=== PATIENT | female | born 1990 | race Caucasian/White ===

== ENCOUNTER 2019-10-31 14:20 | Inpatient (IN) | payer OTHER ==
[~2019-10-31] VITALS: Ht 165.1 cm; Wt 78.0 kg
[2019-10-31] MEDS ORDERED: D5%-LACTATED RINGERS 1,000 ML IV SCH (15:26)
[2019-10-31] MEDS ORDERED: OXYTOCIN 30U/ 0.9% NaCL 500ML 500 ML IV ONE (15:26)
[2019-10-31] MEDS ORDERED: METOCLOPRAMIDE 5 MG/ML, 2ML IVPush PRN (15:30)
[2019-10-31] MEDS ORDERED: TERBUTALINE 1 MG/ML, 1ML IVPush PRN (15:30)
[2019-10-31] MEDS ORDERED: NEWBORN KIT ONE (15:30)
[2019-10-31] MEDS ORDERED: FENTANYL PF 100 MCG/2ML IV PRN (15:30)
[2019-10-31] MEDS ORDERED: OXYTOCIN 30U/ 0.9% NaCL 500ML 500 ML ONE (15:30)
[2019-10-31] MEDS ORDERED: FENTANYL PF 100 MCG/2ML IVPush PRN (15:30)
[2019-10-31] MEDS ORDERED: ONDANSETRON 2MG/ML, 2ML IVPush PRN ×2 (15:30→23:00)
[2019-10-31] MEDS ORDERED: TERBUTALINE 1 MG/ML, 1ML SQ PRN (15:30)
[2019-10-31] MEDS ORDERED: CALCIUM CARBONATE 500 MG TAB.CHEW PO PRN (15:30)
[2019-10-31] MEDS ORDERED: PENICILLIN GK 5,000,000 UNITS in DEXTROSE 5% 100 ML IVPB ONE (15:30)
[2019-10-31] MEDS ORDERED: BETAMETHASONE 6 MG/ML, 5ML IM ONE (15:30)
[2019-10-31] MEDS: LACTATED RINGERS 1,000 ML IV SCH ×2 (15:37→19:11)
[2019-10-31 15:50] LABS: BASOPHILS # (AUTO) 0.08 x10^3/uL (0-0.1); BASOPHILS % (AUTO) 1 % (0-1); EOSINOPHILS # (AUTO) 0.07 x10^3/uL (0-0.4); EOSINOPHILS % (AUTO) 1 % (1-7); LYMPHOCYTES # (AUTO) 2.36 x10^3/uL (1-3.4); LYMPHOCYTES % (AUTO) 16 % (22-44); MD NO; MEAN CORPUSCULAR HEMOGLOBIN 26.3 pg (27.0-34.8); MEAN CORPUSCULAR HGB CONC 32.4 g/dL (32.4-35.8); MEAN CORPUSCULAR VOLUME 81.3 fL (80-100); MEAN PLATELET VOLUME 8.2 fL (7.4-10.4); MONOCYTES # (AUTO) 0.48 x10^3/uL (0.2-0.8); MONOCYTES % (AUTO) 3 % (2-9); NEUTROPHILS # (AUTO) 11.68 x10^3/uL (1.8-6.8); NEUTROPHILS % (AUTO) 80 % (42-75); PLATELET COUNT 402 x10^3/uL (130-400); RED BLOOD COUNT 4.22 x10^6/uL (3.82-5.3); RED CELL DISTRIBUTION WIDTH 13.9 % (9.6-15.2)
[2019-10-31] MEDS ORDERED: FENTANYL PF 100 MCG/2ML ONE (19:08)
[2019-10-31] MEDS ORDERED: FENTANYL PF 500 MCG, BUPIVACAINE/PF 0.5%, 30ML 62.5 ML in SODIUM CHLORIDE 0.9% 177.5 ML EPIDCONT SCH (19:17)
[2019-10-31] MEDS ORDERED: BUPIVACAINE 0.25% ONE (19:44)
[2019-10-31] MEDS ORDERED: ONDANSETRON 2MG/ML, 2ML ONE (20:31)
[2019-10-31] MEDS: PENICILLIN GK 2,500,000 UNITS in DEXTROSE 5% 100 ML IVPB SCH ×2 (20:33→23:58)
[2019-10-31] MEDS ORDERED: FENTANYL/BUPIV./NS/PF 250 ML EPIDCONT SCH (22:31)
[2019-10-31] MEDS ORDERED: LACTATED RINGERS 1,000 ML IV SCH (22:31)
[2019-10-31] MEDS ORDERED: NALOXONE 0.4 MG/ML, 1ML IVPush PRN (23:00)
[2019-10-31] MEDS ORDERED: EPHEDRINE 50 MG/ML, 1ML IVPush PRN (23:00)
[2019-10-31] MEDS ORDERED: LACTATED RINGERS 1,000 ML IVBOLUS PRN (23:00)
[2019-10-31] MEDS ORDERED: DIPHENHYDRAMINE 50 MG/ML, 1ML IVPush PRN (23:00)
[2019-11-01] MEDS ORDERED: OXYTOCIN 30U/ 0.9% NaCL 500ML 500 ML IV SCH (02:36)
[2019-11-01] MEDS ORDERED: OXYTOCIN 30U/ 0.9% NaCL 500ML 0 ML ONE (02:51)
[2019-11-01] MEDS ORDERED: ACETAMINOPHEN 325 MG TABLET PO PRN ×2 (03:00)
[2019-11-01] MEDS ORDERED: SIMETHICONE 80 MG CHEW TAB PO PRN (03:00)
[2019-11-01] MEDS ORDERED: RHOGAM FROM BLOOD BANK 1 NOTE EA IM/IV ONE (03:00)
[2019-11-01] MEDS ORDERED: MAGNESIUM HYDROXIDE 8%, 30ML UDC PO PRN (03:00)
[2019-11-01] MEDS ORDERED: DIPH,PERTUSS(ACELL),TET VAC/PF NC IM-VACC PRN (03:00)
[2019-11-01] MEDS ORDERED: ONDANSETRON 2MG/ML, 2ML IV PRN (03:00)
[2019-11-01] MEDS ORDERED: MISOPROSTOL 200 MCG TABLET PR PRN (03:00)
[2019-11-01] MEDS ORDERED: OXYcodone/APAP 5/325MG TABLET PO PRN ×2 (03:00)
[2019-11-01] MEDS ORDERED: OXYTOCIN 30U/ 0.9% NaCL 500ML 500 ML ONE (04:13)
[2019-11-01 05:45] VITALS: BP 105/62
[2019-11-01 08:57] VITALS: BP 116/71
[2019-11-01] MEDS ORDERED: BETAMETHASONE 6 MG/ML, 5ML IM SCH (09:00)
[2019-11-01] MEDS: IBUPROFEN 600 MG TABLET PO PRN ×2 (09:58→23:43)
[2019-11-01 11:00] LABS: MEAN CORPUSCULAR HEMOGLOBIN 26.1 pg (27.0-34.8); MEAN CORPUSCULAR HGB CONC 32.2 g/dL (32.4-35.8); MEAN CORPUSCULAR VOLUME 81.3 fL (80-100); MEAN PLATELET VOLUME 8.3 fL (7.4-10.4); PLATELET COUNT 394 x10^3/uL (130-400); RED BLOOD COUNT 4.08 x10^6/uL (3.82-5.3); RED CELL DISTRIBUTION WIDTH 14.6 % (9.6-15.2)
[2019-11-01 11:23] LABS: MD YES
[2019-11-01 12:12] LABS: BAND#(MANUAL) 0.94 x10^3/uL; BANDS%(MANUAL) 4 % (0-7); EOS#(MANUAL) 0.24 x10^3/uL (0.0-0.4); EOS% (MANUAL) 1 % (1-7)
[2019-11-01 12:13] LABS: <PLATELET ESTIMATE> ADEQUATE; <PLT MORPHOLOGY> NORMAL PLT MORPH; <RBC MORPHOLOGY> NORMAL; LYMPH#(MANUAL) 1.18 x10^3/uL (1-3.4); LYMPHS% (MANUAL) 5 % (22-44); MONOS#(MANUAL) 0.47 x10^3/uL (0.3-2.7); MONOS% (MANUAL) 2 % (2-9); SEG#(MANUAL) 20.68 x10^3/uL (1.8-6.8); SEGS% (MANUAL) 88 % (42-75)
[2019-11-01 12:25] VITALS: BP 110/66
[2019-11-01 16:05] VITALS: BP 109/69
[2019-11-01 20:00] VITALS: BP 107/65
[2019-11-01] MEDS: DOCUSATE 100 MG CAPSULE PO PRN (23:43)
[2019-11-02] MEDS: DOCUSATE 100 MG CAPSULE PO PRN (07:53)
[2019-11-02] MEDS: IBUPROFEN 600 MG TABLET PO PRN ×3 (07:53→22:17)
[2019-11-02] MEDS: PRENATAL VIT/IRON/FA 1 EACH TABLET PO SCH ×2 (07:53→09:00)
[2019-11-02 07:55] VITALS: BP 127/71
[2019-11-02 19:15] VITALS: BP 118/69
[2019-11-03] MEDS: IBUPROFEN 600 MG TABLET PO PRN (06:13)
[2019-11-03 07:52] VITALS: BP 116/74
[2019-11-03] MEDS ORDERED: DOCU-131 PO (07:59)
[2019-11-03] MEDS ORDERED: IBUP-1222 PO (07:59)
== END 2019-11-03 13:05 | disposition home or self-care (01) | DRG 807 ==
LOC: LDOP 14:20 → LDIP 15:29 → 2NW 11-01 05:25
PROVIDERS: ADMIT Obstetrics & Gynecology; ATTEND Obstetrics & Gynecology
PROC: 10E0XZZ Delivery of Products of Conception, External Approach (ICD-10-PCS; principal; 2019-10-31)
PROC: 3E0R3BZ Introduction of Anesthetic Agent into Spinal Canal, Percutaneous Approach (ICD-10-PCS; 2019-10-31)
PROC: 00HU33Z Insertion of Infusion Device into Spinal Canal, Percutaneous Approach (ICD-10-PCS; 2019-10-31)
DX: O42.913 Preterm premature rupture of membranes, unspecified as to length of time between rupture and onset of labor, third trimester (principal); Z37.0 Single live birth; E78.5 Hyperlipidemia, unspecified; O99.284 Endocrine, nutritional and metabolic diseases complicating childbirth; Z3A.34 34 weeks gestation of pregnancy; Z80.3 Family history of malignant neoplasm of breast; Z80.49 Family history of malignant neoplasm of other genital organs; Z80.8 Family history of malignant neoplasm of other organs or systems
CPT/HCPCS: 36415; S0020; 59025; 82803; 85025; 86592; 86850; 86900; 87081; 87147; 89060; 99211; G0378; J0702; J2405; J2540; J3010; J3490; G0463; J2590; J7050; J7120; Q0114